=== PATIENT | male | born 1970 | race Caucasian/White ===

== ENCOUNTER → 2016-12-29 | Outpatient (CLI) | payer OTHER | LOC: OD 11:14 | PROVIDERS: ATTEND Urology | DX: E29.1 Testicular hypofunction (principal) | CPT/HCPCS: 36415; 84403 ==

== ENCOUNTER → 2017-01-09 | Outpatient (CLI) | payer OTHER ==
[2017-01-11 07:26] LABS: TESTOSTERONE FREE (DIRECT) 6.6 pg/mL (6.8-21.5)
== END ==
LOC: OD 08:50
PROVIDERS: ATTEND Urology
DX: E29.1 Testicular hypofunction (principal)
CPT/HCPCS: 36415; 84402; 84403

== ENCOUNTER 2017-11-29 21:12 | Emergency (ER) | payer OTHER ==
[2017-11-29] MEDS ORDERED: ASPIRIN 81 MG TABLET, CHEWABLE PO ONE (21:48)
--- NOTE | 2017-11-29 22:34 | ER Document Report ---
ED Medical Screen (RME) - General Chief Complaint: Chest Pain Stated Complaint: CHEST PAIN Time Seen by Provider: 11/29/17 22:31 Mode of Arrival: Ambulatory Information source: Patient Notes: 47-year-old male presents to ED for complaint of pain to the center of his chest to his jaw down both arms. He states his pain started a few weeks ago he was able, go he has had several episodes. States today that he had very sharp cramping feeling in the center of his chest both hands were numb and he felt dizzy. He states the hands are numb all the time when he drives and puts his hand above his heart. He states today he was more concerned because of the pain to the center of the chest and the pain in the jaw and the numbness to the arms. Patient is alert and oriented speaking in full sentences respirations regular unlabored and he does have clear lungs to auscultation. I have greeted and performed a rapid initial assessment of this patient. A comprehensive ED assessment and evaluation of the patient, analysis of test results and completion of medical decision making process will be conducted by an additional ED providers. TRAVEL OUTSIDE OF THE [place] IN LAST 30 DAYS: No Physical Exam - Vital signs Vitals: Temp Pulse Resp BP Pulse Ox 97.9 F 58 L 12 103/65 95 11/29/17 21:28 11/29/17 21:28 11/29/17 21:28 11/29/17 21:28 11/29/17 21:28 Course - Vital Signs Vital signs: Temp Pulse Resp BP Pulse Ox 97.9 F 58 L 12 103/65 95 11/29/17 21:28 11/29/17 21:28 11/29/17 21:28 11/29/17 21:28 11/29/17 21:28 Doctor's Discharge - Discharge Referrals: CANDICE HILLIARD MD [Primary Care Provider] - Follow up as needed
--- NOTE | 2017-11-29 22:38 | RADIOLOGY REPORT (SQ) ---
EXAM DESCRIPTION: Single view of the chest CLINICAL HISTORY: cp COMPARISON: None. FINDINGS: Single frontal view of the chest. The cardiomediastinal silhouette has normal size and contour. No consolidation, pneumothorax, or pleural effusion. No displaced rib fractures identified. Upper abdominal soft tissues are unremarkable. IMPRESSION: 1. No acute pulmonary process identified.
[2017-11-29 22:53] LABS: ABSOLUTE BASOPHILS # (AUTO) 0.1 10^3/uL (0.0-0.2); ABSOLUTE EOSINOPHILS # (AUTO) 0.3 10^3/uL (0.0-0.6); ABSOLUTE MONOCYTES (AUTO) 0.9 10^3/uL (0.1-1.4); ABSOLUTE NEUT (AUTO) 4.7 10^3/uL (1.7-8.2); BASOPHILS % (AUTO) 0.7 % (0-2); EOSINOPHILS % (AUTO) 3.4 % (0-6); HEMATOCRIT 39.4 % (37.9-51.0); HEMOGLOBIN 13.7 g/dL (13.5-17.0); LYMPHOCYTES % (AUTO) 33.7 % (13-45); MEAN CORPUSCULAR HEMOGLOBIN 31.8 pg (27.0-33.4); MEAN CORPUSCULAR HGB CONC 34.8 g/dL (32.0-36.0); MEAN CORPUSCULAR VOLUME 91 fl (80-97); MONOCYTES % (AUTO) 9.7 % (3-13); PLATELET COUNT 261 10^3/uL (150-450); RED BLOOD COUNT 4.31 10^6/uL (4.35-5.55); RED CELL DISTRIBUTION WIDTH 13.9 % (11.5-14.0); SEGMENTED NEUTROPHILS % (AUTO) 52.5 % (42-78); TOTAL CELLS COUNTED % (AUTO) 100 %; WHITE BLOOD COUNT 8.9 10^3/uL (4.0-10.5)
[2017-11-29 23:05] LABS: ALANINE AMINOTRANSFERASE 32 U/L (21-72); ALBUMIN 4.2 g/dL (3.5-5.0); ALKALINE PHOSPHATASE 43 U/L (38-126); ANION GAP 10 (5-19); ASPARTATE AMINO TRANSFERASE 24 U/L (17-59); BILIRUBIN,DIRECT 0.2 mg/dL (0.0-0.4); BILIRUBIN,TOTAL 0.3 mg/dL (0.2-1.3); BLOOD UREA NITROGEN 21 mg/dL (7-20); CALCIUM 9.6 mg/dL (8.4-10.2); CARBON DIOXIDE 25 mmol/L (22-30); CHLORIDE 106 mmol/L (98-107); CREATINE KINASE 265 U/L (55-170); GLUCOSE 83 mg/dL (75-110); POTASSIUM 4.2 mmol/L (3.6-5.0); TOTAL PROTEIN 6.3 g/dL (6.3-8.2)
[2017-11-29] MEDS ORDERED: ASPIRIN 81 MG TABLET, CHEWABLE ONE (23:09)
[2017-11-29 23:17] LABS: CREATINE KINASE MB 2.17 ng/mL (<4.55)
[2017-11-29 23:19] LABS: TROPONIN I < 0.012 ng/mL
--- NOTE | 2017-11-30 00:23 | ER Document Report ---
ED General - General Chief Complaint: Chest Pain Stated Complaint: CHEST PAIN Time Seen by Provider: 11/29/17 22:31 Mode of Arrival: Ambulatory Information source: Patient Notes: 47-year-old male with no reported past medical history presents today with complaint of chest pain. Patient states that 3 hours prior to arrival while at religious he experienced a sub-sternal chest pressure and pain that radiated to the left side of his face and left arm. Patient had associated lightheadedness. Patient states this pain lasted approximately 10 minutes. Patient describes 2 other episodes within the last week of similar chest pain with minimal exertion. Patient takes Lamictal for mood stabilization. He has a [id number] smoking history. He denies family history of early cardiac . TRAVEL OUTSIDE OF THE [place] IN LAST 30 DAYS: No - HPI Onset: Just prior to arrival Onset/Duration: Sudden, Gone Quality of pain: Pressure Severity: Mild Associated symptoms: Chest pain, Shortness of breath, Other - Lightheadedness Exacerbated by: Denies Relieved by: Denies Similar symptoms previously: Yes Recently seen / treated by doctor: No Past Medical History - General Information source: Patient - Social History Smoking Status: Current Every Day Smoker Chew tobacco use (# tins/day): No Frequency of alcohol use: None Drug Abuse: None Lives with: Family Family History: Reviewed & Not Pertinent Patient has suicidal ideation: No Patient has homicidal ideation: No - Medical History Medical History: Negative Renal/ Medical History: Denies: Hx Peritoneal Dialysis Review of Systems - Review of Systems Notes: REVIEW OF SYSTEMS: CONSTITUTIONAL : Denies fever, chills, or sweats. Denies recent illness. Denies weight loss, recent hospitalizations. EENT: Denies visula changes, eye pain. Denies nasal or sinus congestion or discharge. Denies sore throat, oral lesions, difficulty swallowing. CARDIOVASCULAR: Denies lower extremity edema. RESPIRATORY: Denies cough, cold, or chest congestion. Denies shortness of breath, difficulty breathing, or wheezing. GASTROINTESTINAL: Denies abdominal pain or distention. Denies nausea, vomiting , or diarrhea. Denies blood in vomitus, stools, or per rectum. Denies black, tarry stools. Denies constipation. GENITOURINARY: Denies difficulty urinating, painful urination, burning, frequency, blood in urine, or vaginal discharge. MUSCULOSKELETAL: Denies back or neck pain or stiffness. Denies joint pain or swelling. SKIN: Denies rash, lesions or sores. HEMATOLOGIC : Denies easy bruising or bleeding. LYMPHATIC: Denies swollen, enlarged glands. NEUROLOGICAL: Denies confusion or altered mental status. Denies passing out or loss of consciousness. Denies headache. Denies weakness or paralysis or loss of use of either side. Denies problems with gait or speech. Denies sensory loss, numbness, or tingling. Denies seizures. PSYCHIATRIC: Denies anxiety or stress. Denies depression, suicidal ideation, or homicidal ideation. Physical Exam - Vital signs Vitals: Temp Pulse Resp BP Pulse Ox 97.9 F 58 L 12 103/65 95 11/29/17 21:28 11/29/17 21:28 11/29/17 21:28 11/29/17 21:28 11/29/17 21:28 Interpretation: Normal, Bradycardic - Notes Notes: PHYSICAL EXAMINATION: GENERAL: Well-appearing, well-nourished and in no acute distress. HEAD: Atraumatic, normocephalic. EYES: Pupils equal round and reactive to light, extraocular movements intact, sclera anicteric, conjunctiva are normal. ENT: Nares patent, oropharynx clear without exudates. Moist mucous membranes. NECK: Normal range of motion, supple without lymphadenopathy LUNGS: Breath sounds clear to auscultation bilaterally and equal. No wheezes rales or rhonchi. HEART: Regular rate and rhythm without murmurs ABDOMEN: Soft, nontender, nondistended abdomen. No guarding, no rebound. No masses appreciated. Musculoskeletal: Normal range of motion, no pitting or edema. No cyanosis. NEUROLOGICAL: Cranial nerves grossly intact. Normal speech, normal gait. Normal sensory, motor exams PSYCH: Normal mood, normal affect. SKIN: Warm, Dry, normal turgor, no rashes or lesions noted. Course - Re-evaluation Re-evalutation: Laboratory 11/29/17 11/29/17 11/29/17 22:40 22:40 22:40 WBC 8.9 RBC 4.31 L Hgb 13.7 Hct 39.4 MCV 91 MCH 31.8 MCHC 34.8 RDW 13.9 Plt Count 261 Seg Neutrophils % 52.5 Lymphocytes % 33.7 Monocytes % 9.7 Eosinophils % 3.4 Basophils % 0.7 Absolute Neutrophils 4.7 Absolute Lymphocytes 3.0 Absolute Monocytes 0.9 Absolute Eosinophils 0.3 Absolute Basophils 0.1 Sodium 141.0 Potassium 4.2 Chloride 106 Carbon Dioxide 25 Anion Gap 10 BUN 21 H Creatinine 1.02 Est GFR ( Amer) > 60 Est GFR (Non-Af Amer) > 60 Glucose 83 Calcium 9.6 Total Bilirubin 0.3 Direct Bilirubin 0.2 Neonat Total Bilirubin Not Reportable Neonat Direct Bilirubin Not Reportable Neonat Indirect Bili Not Reportable AST 24 ALT 32 Alkaline Phosphatase 43 Creatine Kinase 265 H CK-MB (CK-2) 2.17 Troponin I < 0.012 Total Protein 6.3 Albumin 4.2 Chest X-Ray 11/29/17 21:48 IMPRESSION: 2010 [employer]- All Rights Reserved 11/30/17 00:22 47-year-old male with no reported past medical history presents today with complaint of chest pain. Patient states that 3 hours prior to arrival while at religious he experienced a substernal chest pressure and pain that radiated to the left side of his face and left arm. Patient had associated lightheadedness. Patient states this pain lasted approximately 10 minutes. Patient describes 2 other episodes within the last week of similar chest pain with minimal exertion. Patient was seen by myself upon arrival. Vital signs were reviewed. Patient is afebrile, normotensive and not hypoxic. Patient does not appear toxic or dehydrated. They are in no acute distress. Previous medical records and nursing notes reviewed. 11/30/17 01:08 Heart score 3 Spoke to the patient regarding my recommendation for admission to rule out ACS. Patient is declining admission at this time. We did discuss the risks of discharge without further testing which included heart attack and . he states that he will follow-up with his primary care physician Dr. Sloan for further testing. He has remained chest pain-free throughout his ED course. Patient provided the opportunity to ask questions, and express concerns. Discharge instructions discussed. Patient is agreeable with discharge home. Return indications explained and discussed with the patient who displays understanding. Patient encouraged to return to the emergency department immediately with any concerns. 11/30/17 04:44 - Vital Signs Vital signs: Temp Pulse Resp BP Pulse Ox 97.7 F 53 L 16 106/59 L 95 11/30/17 01:25 11/30/17 01:25 11/30/17 01:25 11/30/17 01:25 11/30/17 01:25 - Laboratory Result Diagrams: 11/29/17 22:40 11/29/17 22:40 Laboratory results interpreted by me: 11/29/17 11/29/17 22:40 22:40 RBC 4.31 L BUN 21 H Creatine Kinase 265 H - Diagnostic Test Radiology reviewed: Image reviewed - EKG Interpretation by Me EKG shows normal: Sinus rhythm Rate: Bradycardia Rhythm: NSR [place]/QRS: RBBB Discharge - Discharge Clinical Impression: Left against medical advice Chest pain Qualifiers: Chest pain type: unspecified Qualified Code(s): R07.9 - Chest pain, unspecified Condition: Good Disposition: HOME, SELF-CARE Instructions: Aspirin (Cardiac) ([facility]), Chest Pain of Unclear Cause ([facility]) Additional Instructions: After performing a Medical Screening Examination, I spoke with the patient at length in regards to leaving the hospital against medical advice. I do not believe the patient should leave but the patient is alert oriented x4, understands the risks and benefits of staying and leaving including disability and . Pt understands that he can return at any time for further care and is more than welcome to do so. Pt verbalizes this understanding. Forms: Smoking Cessation Education Referrals: CANDICE HILLIARD MD [NO LOCAL MD] - Follow up tomorrow
[2017-11-30 01:29] VITALS: BP 106/59
--- NOTE | 2017-11-30 08:44 | EKG REPORT ---
SEVERITY:- ABNORMAL ECG - SINUS RHYTHM INCOMPLETE RIGHT BUNDLE BRANCH BLOCK : Confirmed by: Cosme Farr 30-Nov-2017 08:43:51
== END 2017-11-30 01:33 | disposition home or self-care (01) ==
LOC: ER 21:12
DX: R07.89 Other chest pain (principal); I45.10 Unspecified right bundle-branch block; R00.1 Bradycardia, unspecified; R42 Dizziness and giddiness; R06.02 Shortness of breath; F17.200 Nicotine dependence, unspecified, uncomplicated; Z79.899 Other long term (current) drug therapy; Z53.20 Procedure and treatment not carried out because of patient's decision for unspecified reasons
CPT/HCPCS: 36415; 71045; 80053; 82550; 82553; 84484; 85025; 93005; 93010; 99285

== ENCOUNTER → 2018-05-22 | Outpatient (CLI) | payer OTHER ==
[2018-05-22 16:11] LABS: ABSOLUTE LYMPHOCYTES (AUTO) 0.7 10^3/uL (0.5-4.7); ABSOLUTE MONOCYTES (AUTO) 0.8 10^3/uL (0.1-1.4); ABSOLUTE NEUT (AUTO) 3.6 10^3/uL (1.7-8.2); BASOPHILS % (AUTO) 0.4 % (0-2); EOSINOPHILS % (AUTO) 0.4 % (0-6); HEMATOCRIT 41.2 % (37.9-51.0); HEMOGLOBIN 14.4 g/dL (13.5-17.0); LYMPHOCYTES % (AUTO) 14.3 % (13-45); MEAN CORPUSCULAR HEMOGLOBIN 30.6 pg (27.0-33.4); MEAN CORPUSCULAR HGB CONC 34.9 g/dL (32.0-36.0); MEAN CORPUSCULAR VOLUME 88 fl (80-97); MONOCYTES % (AUTO) 15.6 % (3-13); PLATELET COUNT 203 10^3/uL (150-450); RED CELL DISTRIBUTION WIDTH 13.2 % (11.5-14.0); SEGMENTED NEUTROPHILS % (AUTO) 69.3 % (42-78); TOTAL CELLS COUNTED % (AUTO) 100 %; WHITE BLOOD COUNT 5.2 10^3/uL (4.0-10.5)
[2018-05-22 16:36] LABS: ALANINE AMINOTRANSFERASE 34 U/L (21-72); ALBUMIN 3.8 g/dL (3.5-5.0); ALKALINE PHOSPHATASE 52 U/L (38-126); ANION GAP 11 (5-19); ASPARTATE AMINO TRANSFERASE 30 U/L (17-59); BILIRUBIN,DIRECT 0.3 mg/dL (0.0-0.4); BILIRUBIN,TOTAL 0.6 mg/dL (0.2-1.3); BLOOD UREA NITROGEN 10 mg/dL (7-20); CALCIUM 9.6 mg/dL (8.4-10.2); CARBON DIOXIDE 31 mmol/L (22-30); CHLORIDE 98 mmol/L (98-107); GLUCOSE 108 mg/dL (75-110); POTASSIUM 3.6 mmol/L (3.6-5.0); SODIUM 139.6 mmol/L (137-145); TOTAL PROTEIN 6.3 g/dL (6.3-8.2)
== END ==
LOC: LAB 15:41
PROVIDERS: ATTEND Nurse Practitioner Family
DX: R50.9 Fever, unspecified (principal)
CPT/HCPCS: 36415; 80053; 85025

== ENCOUNTER 2018-05-23 09:23 | Emergency (ER) | payer OTHER ==
[2018-05-23] MEDS ORDERED: RINGERS SOLUTION,LACTATED 1,000 ML IV ONE (09:39)
[2018-05-23] MEDS ORDERED: NORMAL SALINE 1000 ML 1,000 ML IV PRN (09:39)
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
[2018-05-23 10:07] VITALS: BP 112/90
[2018-05-23 10:14] LABS: HEMATOCRIT 42.2 % (37.9-51.0); HEMOGLOBIN 14.6 g/dL (13.5-17.0); MEAN CORPUSCULAR HEMOGLOBIN 30.5 pg (27.0-33.4); MEAN CORPUSCULAR HGB CONC 34.5 g/dL (32.0-36.0); MEAN CORPUSCULAR VOLUME 88 fl (80-97); PLATELET COUNT 223 10^3/uL (150-450); RED BLOOD COUNT 4.78 10^6/uL (4.35-5.55); RED CELL DISTRIBUTION WIDTH 13.1 % (11.5-14.0); WHITE BLOOD COUNT 5.1 10^3/uL (4.0-10.5)
[2018-05-23 10:15] LABS: APPEARANCE,URINE SLIGHTLY-CLOUDY; BILIRUBIN,URINE NEGATIVE (NEGATIVE); COLOR,URINE YELLOW; GLUCOSE, URINE NEGATIVE (NEGATIVE); KETONES,URINE NEGATIVE (NEGATIVE); LEUKOCYTE ESTERASE,URINE NEGATIVE (NEGATIVE); NITRITE,URINE NEGATIVE (NEGATIVE); PROTEIN,URINE 30 mg/dL (NEGATIVE); URINE SPECIFIC GRAVITY 1.018; UROBILINOGEN,URINE NEGATIVE mg/dL (<2.0)
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
[2018-05-23] MEDS ORDERED: PROCHLORPERAZINE EDISYLATE INJ 10 MG/2 ML VIAL IV ONE (10:23)
[2018-05-23] MEDS ORDERED: DIPHENHYDRAMINE HCL 50 MG/ML VIAL IV ONE (10:23)
[2018-05-23] MEDS ORDERED: KETOROLAC TROMETHAMINE INJ/PF 30 MG/1 ML SDV IV ONE (10:24)
[2018-05-23 10:27] LABS: A TYPE INFLUENZA AG NEGATIVE (NEGATIVE); B INFLUENZA AG NEGATIVE (NEGATIVE)
[2018-05-23 10:28] LABS: ALANINE AMINOTRANSFERASE 36 U/L (21-72); ALBUMIN 3.9 g/dL (3.5-5.0); ALKALINE PHOSPHATASE 42 U/L (38-126); ANION GAP 13 (5-19); ASPARTATE AMINO TRANSFERASE 37 U/L (17-59); BILIRUBIN,DIRECT 0.2 mg/dL (0.0-0.4); BILIRUBIN,TOTAL 0.4 mg/dL (0.2-1.3); BLOOD UREA NITROGEN 10 mg/dL (7-20); CALCIUM 9.8 mg/dL (8.4-10.2); CARBON DIOXIDE 30 mmol/L (22-30); CHLORIDE 102 mmol/L (98-107); GLUCOSE 115 mg/dL (75-110); SODIUM 144.5 mmol/L (137-145); TOTAL PROTEIN 6.4 g/dL (6.3-8.2)
[2018-05-23 10:35] LABS: ABSOLUTE LYMPHOCYTES# (MANUAL) 1.6 10^3/uL (0.5-4.7); ABSOLUTE MONOCYTES # (MANUAL) 0.7 10^3/uL (0.1-1.4); ABSOLUTE NEUTROPHILS# (MANUAL) 2.7 10^3/uL (1.7-8.2); BAND NEUTROPHILS % (MANUAL) 1 % (3-5); BASOPHILS % (MANUAL) 0 % (0-2); EOSINOPHILS % (MANUAL) 1 % (0-6); LYMPHOCYTES % (MANUAL) 27 % (13-45); MONOCYTES % (MANUAL) 14 % (3-13); SEGMENTED NEUTROPHILS % (MAN) 52 % (42-78); TOTAL CELLS COUNTED 100
[2018-05-23 10:36] LABS: OVALOCYTES SLIGHT; PLATELET COMMENT ADEQUATE; POIKILOCYTOSIS SLIGHT
[2018-05-23] MEDS ORDERED: DEXTROSE 5%-NORMAL SALINE 1,000 ML IV ONE (11:07)
[2018-05-23] MEDS ORDERED: ONDANSETRON ODT 4 MG TAB (6 TAB/ER DISP) PO PRN (12:03)
== END 2018-05-23 12:36 | disposition home or self-care (01) ==
LOC: ER 09:23
DX: B34.9 Viral infection, unspecified (principal); E86.0 Dehydration; R19.7 Diarrhea, unspecified; R11.10 Vomiting, unspecified; R51 Headache; R50.9 Fever, unspecified; Z90.5 Acquired absence of kidney; F11.20 Opioid dependence, uncomplicated; Z79.899 Other long term (current) drug therapy; Z88.8 Allergy status to other drugs, medicaments and biological substances
CPT/HCPCS: 99284; 96361; 96374; 96375; 36415; 87040; 85025; 87077; 80053; 81001; 87186; 83605; 87804; J1200; J1885; J0780; J7120

== ENCOUNTER 2018-05-24 02:40 | Inpatient (IN) | payer OTHER ==
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
[2018-05-24 03:17] LABS: VENOUS BLOOD PCO2 41.7 mmHg (35-63); VENOUS BLOOD PH 7.4 (7.30-7.42)
[2018-05-24 03:21] LABS: HEMATOCRIT 36.8 % (37.9-51.0); HEMOGLOBIN 12.7 g/dL (13.5-17.0); MEAN CORPUSCULAR HEMOGLOBIN 30.3 pg (27.0-33.4); MEAN CORPUSCULAR HGB CONC 34.4 g/dL (32.0-36.0); MEAN CORPUSCULAR VOLUME 88 fl (80-97); PLATELET COUNT 225 10^3/uL (150-450); RED BLOOD COUNT 4.18 10^6/uL (4.35-5.55); RED CELL DISTRIBUTION WIDTH 13.3 % (11.5-14.0); WHITE BLOOD COUNT 5.1 10^3/uL (4.0-10.5)
--- NOTE | 2018-05-24 03:34 | RADIOLOGY REPORT (SQ) ---
EXAM DESCRIPTION: XR CHEST 1 VIEW COMPLETED DATE/TME: 05/24/2018 03:01 CLINICAL HISTORY: 47 years Male, positive blood cultures, fever COMPARISON:11/29/2017 NUMBER OF VIEWS/TECHNIQUE: 1/AP FINDINGS: Adequate lung volume, clear parenchyma, normal cardiac silhouette, and intact bony thorax. IMPRESSION: No acute cardiopulmonary findings.
[2018-05-24 03:39] LABS: ALANINE AMINOTRANSFERASE 38 U/L (21-72); ALBUMIN 3.4 g/dL (3.5-5.0); ALKALINE PHOSPHATASE 45 U/L (38-126); ANION GAP 10 (5-19); ASPARTATE AMINO TRANSFERASE 57 U/L (17-59); BILIRUBIN,DIRECT 0.1 mg/dL (0.0-0.4); BILIRUBIN,TOTAL 0.3 mg/dL (0.2-1.3); BLOOD UREA NITROGEN 9 mg/dL (7-20); CALCIUM 8.8 mg/dL (8.4-10.2); CARBON DIOXIDE 29 mmol/L (22-30); CHLORIDE 104 mmol/L (98-107); GLUCOSE 103 mg/dL (75-110); POTASSIUM 3.7 mmol/L (3.6-5.0); SODIUM 143.4 mmol/L (137-145)
[2018-05-24 03:49] LABS: ABSOLUTE LYMPHOCYTES# (MANUAL) 1.5 10^3/uL (0.5-4.7); ABSOLUTE MONOCYTES # (MANUAL) 0.9 10^3/uL (0.1-1.4); ABSOLUTE NEUTROPHILS# (MANUAL) 2.5 10^3/uL (1.7-8.2); BASOPHILS % (MANUAL) 0 % (0-2); EOSINOPHILS % (MANUAL) 3 % (0-6); LYMPHOCYTES % (MANUAL) 28 % (13-45); MONOCYTES % (MANUAL) 18 % (3-13); PLATELET COMMENT ADEQUATE; SCHISTOCYTES SLIGHT; SEGMENTED NEUTROPHILS % (MAN) 49 % (42-78); TOTAL CELLS COUNTED 100; TOXIC GRANULATION SLIGHT
[2018-05-24] MEDS ORDERED: CEFTRIAXONE 2 GM/D5W RTU 2 GM/50 ML RTUPB IV ONE (03:56)
[2018-05-24 04:01] LABS: APPEARANCE,URINE CLEAR; BILIRUBIN,URINE NEGATIVE (NEGATIVE); COLOR,URINE STRAW; GLUCOSE, URINE NEGATIVE (NEGATIVE); KETONES,URINE NEGATIVE (NEGATIVE); LEUKOCYTE ESTERASE,URINE NEGATIVE (NEGATIVE); NITRITE,URINE NEGATIVE (NEGATIVE); PROTEIN,URINE NEGATIVE (NEGATIVE); URINE SPECIFIC GRAVITY 1.008; UROBILINOGEN,URINE NEGATIVE mg/dL (<2.0)
[2018-05-24] MEDS ORDERED: NORMAL SALINE 1000 ML 1,000 ML IV ONE (04:04)
[2018-05-24] MEDS ORDERED: KETOROLAC TROMETHAMINE INJ/PF 30 MG/1 ML SDV IV ONE (04:05)
[2018-05-24] MEDS ORDERED: CEFTRIAXONE INJ 1000 MG VIAL ONE (04:07)
[2018-05-24] MEDS ORDERED: IPRATROPIUM/ALBUTEROL 0.5-2.5 MG/3 ML AMPUL NEB PRN (04:31)
[2018-05-24] MEDS ORDERED: KETOROLAC TROMETHAMINE INJ/PF 30 MG/1 ML SDV IV PRN (04:35)
[2018-05-24 05:01] LABS: URINE AMPHETAMINES SCREEN NEGATIVE; URINE BARBITURATES SCREEN NEGATIVE; URINE BENZODIAZEPINES SCREEN NEGATIVE; URINE COCAINE SCREEN NEGATIVE; URINE MARIJUANA (THC) SCREEN NEGATIVE; URINE METHADONE SCREEN NEGATIVE; URINE PHENCYCLIDINE SCREEN NEGATIVE
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
[2018-05-24] MEDS: NORMAL SALINE 1000 ML 1,000 ML IV PRN ×2 (05:50→21:11)
[2018-05-24 06:19] LABS: HEMATOCRIT 32.8 % (37.9-51.0); HEMOGLOBIN 11.6 g/dL (13.5-17.0); MEAN CORPUSCULAR HEMOGLOBIN 30.8 pg (27.0-33.4); MEAN CORPUSCULAR HGB CONC 35.3 g/dL (32.0-36.0); MEAN CORPUSCULAR VOLUME 87 fl (80-97); PLATELET COUNT 202 10^3/uL (150-450); RED BLOOD COUNT 3.76 10^6/uL (4.35-5.55); RED CELL DISTRIBUTION WIDTH 13.5 % (11.5-14.0); WHITE BLOOD COUNT 4.4 10^3/uL (4.0-10.5)
[2018-05-24 06:41] LABS: ABSOLUTE LYMPHOCYTES# (MANUAL) 1.5 10^3/uL (0.5-4.7); ABSOLUTE MONOCYTES # (MANUAL) 0.5 10^3/uL (0.1-1.4); ABSOLUTE NEUTROPHILS# (MANUAL) 2.1 10^3/uL (1.7-8.2); BAND NEUTROPHILS % (MANUAL) 1 % (3-5); BASOPHILS % (MANUAL) 0 % (0-2); EOSINOPHILS % (MANUAL) 6 % (0-6); LYMPHOCYTES % (MANUAL) 35 % (13-45); MONOCYTES % (MANUAL) 12 % (3-13); NUCLEATED RED BLOOD CELLS 1 /100 WBC (0); SEGMENTED NEUTROPHILS % (MAN) 46 % (42-78); TOTAL CELLS COUNTED 100
[2018-05-24 06:42] LABS: ANISOCYTOSIS SLIGHT; OVALOCYTES 1+; PLATELET COMMENT ADEQUATE; PLATELET LARGE PRESENT; SCHISTOCYTES 1+
[2018-05-24] MEDS: ACETAMINOPHEN 325 MG TABLET PO PRN ×2 (09:01→17:48)
[2018-05-24] MEDS: HEPARIN SOD (PORCINE) 5,000 UNIT/ML 1 ML SYRINGE SUBCUT SCH ×3 (09:06→21:10)
[2018-05-24] MEDS: DOCUSATE SODIUM 100 MG CAPSULE PO SCH ×2 (10:30→17:47)
[2018-05-24] MEDS: PIPERACILLIN SODIUM/TAZOBACTAM 3.375 GM in NORMAL SALINE 100 ML IV SCH ×3 (14:19→23:03)
[2018-05-24] MEDS: KETOROLAC TROMETHAMINE INJ/PF 30 MG/1 ML SDV IV PRN ×2 (18:53→23:07)
[2018-05-24] MEDS ORDERED: CEFTRIAXONE 1 GM/D5W RTU 1 GM/50 ML RTUPB IV SCH (22:00)
[2018-05-25] MEDS: KETOROLAC TROMETHAMINE INJ/PF 30 MG/1 ML SDV IV PRN ×5 (02:56→20:23)
[2018-05-25 04:57] LABS: ABSOLUTE EOSINOPHILS # (AUTO) 0.1 10^3/uL (0.0-0.6); ABSOLUTE LYMPHOCYTES (AUTO) 1.1 10^3/uL (0.5-4.7); ABSOLUTE MONOCYTES (AUTO) 0.6 10^3/uL (0.1-1.4); ABSOLUTE NEUT (AUTO) 2.1 10^3/uL (1.7-8.2); BASOPHILS % (AUTO) 0.5 % (0-2); EOSINOPHILS % (AUTO) 3.7 % (0-6); HEMATOCRIT 33.5 % (37.9-51.0); HEMOGLOBIN 11.7 g/dL (13.5-17.0); LYMPHOCYTES % (AUTO) 28.3 % (13-45); MEAN CORPUSCULAR HEMOGLOBIN 30.7 pg (27.0-33.4); MEAN CORPUSCULAR HGB CONC 34.9 g/dL (32.0-36.0); MEAN CORPUSCULAR VOLUME 88 fl (80-97); MONOCYTES % (AUTO) 15.9 % (3-13); PLATELET COUNT 199 10^3/uL (150-450); RED BLOOD COUNT 3.81 10^6/uL (4.35-5.55); RED CELL DISTRIBUTION WIDTH 13.3 % (11.5-14.0); SEGMENTED NEUTROPHILS % (AUTO) 51.6 % (42-78); TOTAL CELLS COUNTED % (AUTO) 100 %
[2018-05-25] MEDS: HEPARIN SOD (PORCINE) 5,000 UNIT/ML 1 ML SYRINGE SUBCUT SCH ×3 (06:08→21:17)
[2018-05-25] MEDS: PIPERACILLIN SODIUM/TAZOBACTAM 3.375 GM in NORMAL SALINE 100 ML IV SCH ×4 (06:08→23:17)
[2018-05-25] MEDS: BUPRENORPHINE HCL 2 MG SUBLINGUAL TABLET SL SCH ×2 (09:35→17:03)
--- NOTE | 2018-05-25 12:47 | RADIOLOGY REPORT (SQ) ---
EXAM DESCRIPTION: CT HEAD WITHOUT COMPLETED DATE/TIME: 05/25/2018 12:08 pm REASON FOR STUDY: severe headache,photophobia,neck stiffness COMPARISON: None. TECHNIQUE: Axial images acquired through the brain without intravenous contrast. Images reviewed wi th bone, brain and subdural windows. Additional sagittal and coronal reconstructions were generated. Images stored on PACS. All CT scanners at this facility use dose modulation, iterative reconstruction, and/or weight based d osing when appropriate to reduce radiation dose to as low as reasonably achievable (ALARA). [facility]: Dose Right [facility]: CareDose [facility]: Dose Right [facility]: Teradose 4D [facility]: [employer] RADIATION DOSE: CT Rad equipment meets quality standard of care and radiation dose reduction techniq ues were employed. CTDIvol: 48.8 mGy. DLP: 1052 mGy-cm. mGy. LIMITATIONS: None. FINDINGS: VENTRICLES: Normal size and contour. CEREBRUM: No masses. No hemorrhage. No midline shift. No evidence for acute infarction. Normal gra y/white matter differentiation. No areas of low density in the white matter. CEREBELLUM: No masses. No hemorrhage. No alteration of density. No evidence for acute infarction. EXTRAAXIAL SPACES: No fluid collections. No masses. ORBITS AND GLOBE: No intra- or extraconal masses. Normal contour of globe without masses. CALVARIUM: No fracture. PARANASAL SINUSES: No fluid or mucosal thickening. SOFT TISSUES: No mass or hematoma. OTHER: No other significant finding. IMPRESSION: NORMAL BRAIN CT WITHOUT CONTRAST. EVIDENCE OF ACUTE STROKE: NO. COMMENT: Quality ID # [id number]: Final reports with documentation of one or more dose reduction techniques (e.g., Automated exposure control, adjustment of the mA and/or kV according to patient size, use of iterative reconstruction technique) TECHNICAL DOCUMENTATION: JOB ID: [id number] [employer]- All Rights Reserved Reading location - IP/workstation name: [email or web address]
[2018-05-25 15:20] LABS: INTERNATIONAL RATION (INR) 0.92; PROTHROMBIN TIME 12.8 SEC (11.4-15.4)
[2018-05-25 15:21] LABS: PARTIAL THROMBOPLASTIN TIME 37.7 SEC (23.5-35.8)
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
[2018-05-25] MEDS: ZOLPIDEM TARTRATE 5 MG TABLET PO SCH (21:02)
[2018-05-26] MEDS: KETOROLAC TROMETHAMINE INJ/PF 30 MG/1 ML SDV IV PRN ×5 (01:54→20:40)
[2018-05-26] MEDS: HEPARIN SOD (PORCINE) 5,000 UNIT/ML 1 ML SYRINGE SUBCUT SCH ×3 (05:26→21:44)
[2018-05-26] MEDS: PIPERACILLIN SODIUM/TAZOBACTAM 3.375 GM in NORMAL SALINE 100 ML IV SCH (06:11)
[2018-05-26] MEDS: ACETAMINOPHEN 325 MG TABLET PO PRN ×2 (07:35→14:09)
[2018-05-26] MEDS: BUPRENORPHINE HCL 2 MG SUBLINGUAL TABLET SL SCH ×2 (08:31→16:06)
[2018-05-26 09:40] LABS: INTERNATIONAL RATION (INR) 0.97; PARTIAL THROMBOPLASTIN TIME 38.9 SEC (23.5-35.8); PROTHROMBIN TIME 13.4 SEC (11.4-15.4)
[2018-05-26 09:44] LABS: ANION GAP 7 (5-19); BLOOD UREA NITROGEN 8 mg/dL (7-20); CARBON DIOXIDE 29 mmol/L (22-30); CHLORIDE 105 mmol/L (98-107); GLUCOSE 105 mg/dL (75-110); POTASSIUM 3.8 mmol/L (3.6-5.0); SODIUM 141.1 mmol/L (137-145)
[2018-05-26 09:57] LABS: HEMATOCRIT 33.9 % (37.9-51.0); HEMOGLOBIN 11.8 g/dL (13.5-17.0); MEAN CORPUSCULAR HEMOGLOBIN 30.5 pg (27.0-33.4); MEAN CORPUSCULAR HGB CONC 34.9 g/dL (32.0-36.0); MEAN CORPUSCULAR VOLUME 88 fl (80-97); PLATELET COUNT 268 10^3/uL (150-450); RED BLOOD COUNT 3.88 10^6/uL (4.35-5.55); RED CELL DISTRIBUTION WIDTH 13.3 % (11.5-14.0); WHITE BLOOD COUNT 7.3 10^3/uL (4.0-10.5)
[2018-05-26 10:22] LABS: ABSOLUTE LYMPHOCYTES# (MANUAL) 1.3 10^3/uL (0.5-4.7); ABSOLUTE MONOCYTES # (MANUAL) 0.8 10^3/uL (0.1-1.4); BASOPHILS % (MANUAL) 0 % (0-2); EOSINOPHILS % (MANUAL) 3 % (0-6); LYMPHOCYTES % (MANUAL) 18 % (13-45); MONOCYTES % (MANUAL) 11 % (3-13); SEGMENTED NEUTROPHILS % (MAN) 68 % (42-78); TOTAL CELLS COUNTED 100
[2018-05-26 10:23] LABS: PLATELET CLUMPS PRESENT; PLATELET COMMENT ADEQUATE; PLATELET GIANT PRESENT
--- NOTE | 2018-05-26 12:37 | RADIOLOGY REPORT (SQ) ---
EXAM DESCRIPTION: LUMBAR PUNCTURE COMPLETED DATE/TIME: 05/26/2018 12:26 pm REASON FOR STUDY: bacteremia, headache, neck pain, photophobia COMPARISON: CT of the head 05/25/2018. FLUOROSCOPY TIME: 22 seconds 4 images saved to PACS. TECHNIQUE: Fluoroscopic guided lumbar puncture with opening and closing pressures. LIMITATIONS: None. PROCEDURE: After written consent and assessment were obtained, the patient was brought into the fluo roscopy room and placed prone on the table. The patient's lower back was prepped in a sterile fashio n and an entry site was selected under live fluoroscopic guidance. The entry site was anesthetized wi th 1% lidocaine. A 20 gauge needle was advanced through the skin and into the thecal sac at the level of L3-L4. An opening pressure of 26 water units was obtained. After approximately 7.3ml of CSF was drained, a closing pressure of 22 water units was obtained. The needle was removed and a sterile band age was placed of the site. Specimens were sent to the lab for testing. A fluoroscopic spot image was saved to PACS confirming level access. FINDINGS: Clear CSF IMPRESSION: Lumbar puncture under fluoroscopy. No immediate complication. COMMENT: Patient medication list reviewed:Yes- Quality ID# [id number]:Eligible professional attests to docu menting in the medical record they obtained, updated, or reviewed the patient's current medications.. Quality ID 145: Final reports for procedures using fluoroscopy that document radiation exposure anish ricky, or exposure time and number of fluorographic images (if radiation exposure indices are not avail able) TECHNICAL DOCUMENTATION: JOB ID: [id number] [employer]- All Rights Reserved Reading location - IP/workstation name: [email or web address]
[2018-05-26] MEDS: SENNOSIDES/DOCUSATE 8.6-50 MG 1 EACH TABLET PO SCH (14:09)
[2018-05-26] MEDS ORDERED: CLONAZEPAM 1 MG TABLET PO ONE (14:15)
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
[2018-05-26 16:23] LABS: GLUCOSE,CSF 59 mg/dL (40-70); PROTEIN,CSF 38 mg/dL (12-60)
[2018-05-26 16:57] LABS: APPEARANCE ALL TUBES CLEAR; COLOR ALL TUBES COLORLESS; CSF TUBE NUMBER 3; RED BLOOD CELL,CSF 7 /uL (0-10)
[2018-05-26 16:58] LABS: WHITE BLOOD CELL,CSF 2 /uL (0-5)
[2018-05-26] MEDS: ZOLPIDEM TARTRATE 5 MG TABLET PO SCH (21:43)
[2018-05-27] MEDS: KETOROLAC TROMETHAMINE INJ/PF 30 MG/1 ML SDV IV PRN ×4 (01:24→18:57)
[2018-05-27] MEDS: HEPARIN SOD (PORCINE) 5,000 UNIT/ML 1 ML SYRINGE SUBCUT SCH ×3 (05:22→21:18)
[2018-05-27] MEDS: ACETAMINOPHEN 325 MG TABLET PO PRN (08:58)
[2018-05-27] MEDS: SENNOSIDES/DOCUSATE 8.6-50 MG 1 EACH TABLET PO SCH (08:59)
[2018-05-27] MEDS: BUPRENORPHINE HCL 2 MG SUBLINGUAL TABLET SL SCH ×2 (08:59→16:15)
[2018-05-27] MEDS ORDERED: NA PHOS,M-B/NA PHOS,DI-BA (ADULT) 133 ML ENEMA PR ONE (09:30)
[2018-05-27] MEDS ORDERED: CEFTRIAXONE 1 GM/D5W RTU 1 GM/50 ML RTUPB IV SCH (10:00)
[2018-05-27] MEDS ORDERED: CEFTRIAXONE SODIUM 1,000 MG in DEXTROSE 5%-WATER 50 ML IV SCH (10:00)
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
[2018-05-27] MEDS: BUTALB/ACETAMINOPHEN/CAFFEINE 1 TAB EACH PO PRN (21:20)
[2018-05-27] MEDS: ZOLPIDEM TARTRATE 5 MG TABLET PO SCH (21:21)
[2018-05-28] MEDS: KETOROLAC TROMETHAMINE INJ/PF 30 MG/1 ML SDV IV PRN ×3 (04:37→18:29)
[2018-05-28] MEDS: HEPARIN SOD (PORCINE) 5,000 UNIT/ML 1 ML SYRINGE SUBCUT SCH ×3 (06:43→21:22)
[2018-05-28] MEDS ORDERED: CEFTRIAXONE SODIUM 2,000 MG in DEXTROSE 5%-WATER 100 ML IV SCH (10:00)
[2018-05-28] MEDS ORDERED: CEFTRIAXONE 2 GM/D5W RTU 2 GM/50 ML RTUPB IV SCH (10:00)
[2018-05-28] MEDS: SENNOSIDES/DOCUSATE 8.6-50 MG 1 EACH TABLET PO SCH (10:40)
[2018-05-28] MEDS: SULFAMETHOXAZOLE/TRIMETHOPRIM 800-160 MG TABLET PO SCH ×2 (10:40→17:18)
[2018-05-28] MEDS: BUPRENORPHINE HCL 2 MG SUBLINGUAL TABLET SL SCH ×2 (10:41→16:08)
[2018-05-28 11:48] LABS: ALANINE AMINOTRANSFERASE 126 U/L (21-72); ALBUMIN 3.1 g/dL (3.5-5.0); ALKALINE PHOSPHATASE 63 U/L (38-126); ANION GAP 9 (5-19); ASPARTATE AMINO TRANSFERASE 87 U/L (17-59); BILIRUBIN,DIRECT 0.1 mg/dL (0.0-0.4); BILIRUBIN,TOTAL 0.2 mg/dL (0.2-1.3); BLOOD UREA NITROGEN 11 mg/dL (7-20); CARBON DIOXIDE 31 mmol/L (22-30); CHLORIDE 103 mmol/L (98-107); GLUCOSE 83 mg/dL (75-110); POTASSIUM 4.9 mmol/L (3.6-5.0); SODIUM 142.5 mmol/L (137-145); TOTAL PROTEIN 5.4 g/dL (6.3-8.2)
[2018-05-28] MEDS: BUTALB/ACETAMINOPHEN/CAFFEINE 1 TAB EACH PO PRN (12:23)
--- NOTE | 2018-05-28 14:43 | RADIOLOGY REPORT (SQ) ---
EXAM DESCRIPTION: CTA CHEST COMPLETED DATE/TIME: 05/28/2018 2:26 pm REASON FOR STUDY: assess for aortitis per ID recommendation COMPARISON: None. TECHNIQUE: CT scan of the chest performed using helical scanning technique with dynamic intravenous contrast injection. Images reviewed with lung, soft tissue and bone windows. Reconstructed coronal and sagittal MPR images reviewed. Additional 3 dimensional post-processing performed to develop Maximal Intensity Projection images (MN P). All images stored on PACS. All CT scanners at this facility use dose modulation, iterative reconstruction, and/or weight based d osing when appropriate to reduce radiation dose to as low as reasonably achievable (ALARA). [facility]: Dose Right [facility]: CareDose [facility]: Dose Right [facility]: Teradose 4D [facility]: Tactics Cloud CONTRAST TYPE AND DOSE: contrast/concentration: Isovue 350.00 mg/ml; Total Contrast Delivered: 52.0 ml; Total Saline Delivered: 80.0 ml Contrast bolus optimized for the aorta. Not diagnostic for the pulmonary arteries. RENAL FUNCTION: GFR > 60. RADIATION DOSE: CT Rad equipment meets quality standard of care and radiation dose reduction techniq ues were employed. CTDIvol: 1.9 - 22.5 mGy. DLP: 537 mGy-cm. . LIMITATIONS: Motion artifact mildly limits assessment of the ascending aorta. FINDINGS: LUNGS AND PLEURA: Motion artifact. Bibasilar subsegmental atelectasis with volume loss an d consolidation particularly in the dependent right lower lobe. Small effusions, right greater than left. Fluid looks relatively simple. AORTA AND GREAT VESSELS: Allowing for mild motion artifact along the ascending aorta, no dilatation o r wall thickening appreciated. No dissection. Great vessel origins are patent. HEART: Trace pericardial fluid. No large effusion. No significant coronary calcification or suggest ion of coronary aneurysm. PULMONARY ARTERIES: Limited assessment. Normal caliber without evidence of wall thickening. HILAR AND MEDIASTINAL STRUCTURES: No identified masses or abnormal nodes. HARDWARE: None in the chest. UPPER ABDOMEN: Large amount of stool in the colon. THYROID AND OTHER SOFT TISSUES: No masses. No adenopathy. BONES: No acute or significant finding. 3D MIPS: Confirm above findings. OTHER: No other significant finding. IMPRESSION: 1. No evidence of aortic aneurysm or dissection or abnormal wall thickening. 2. Bilat eral small effusions with bibasilar volume loss/ consolidation particularly in the right lower lobe. COMMENT: Quality ID # [id number]: Final reports with documentation of one or more dose reduction techniques (e.g., Automated exposure control, adjustment of the mA and/or kV according to patient size, use of iterative reconstruction technique) TECHNICAL DOCUMENTATION: JOB ID: [id number] [employer]- All Rights Reserved Reading location - IP/workstation name: [email or web address]
--- NOTE | 2018-05-28 17:20 | PDOC PROGRESS REPORT ---
Subjective Progress Note for:: 05/28/18 Subjective:: CLARIBEL GRANADOS is a 47 year old male who presented to the emergency room with a 6- day history of diarrhea, febrile episodes and severe intermittent headaches. Two days prior to admission he was seen by his primary care provider who obtained blood cultures which were positive for gram-negative rods x2 bottles. His primary care provider requested that he be seen in the ER where his evaluation revealed a CRP of 68. Since the time of his admission the patient had no further diarrhea and when his infective agent was identified as Salmonella he admitted exposure to raw sewage when he crawled through a [place] sewer pipe and got some of the sewage water in his mouth. He was subsequently continued on IV antibiotics and infectious disease consultation was obtained. Patient did have a very broadly sensitive Salmonella and infectious disease recommends extremity has treatment for 14 days with oral antibiotic therapy utilizing trimethoprim sulfa. Therefore his antibiotic regiment was converted to oral therapy on 05/28/2018 and he will be discharged 05/29/2018 if he continues to tolerate therapy without nausea vomiting or recurrence of symptoms. Reason For Visit: BACTEREMIA Physical Exam Vital Signs: Temp Pulse Resp BP Pulse Ox 97.9 F 53 L 16 109/64 95 05/28/18 15:51 05/28/18 15:51 05/28/18 15:51 05/28/18 15:51 05/28/18 15:51 Intake & Output 05/26/18 05/27/18 05/28/18 23:59 23:59 23:59 Intake Total 1476 1594 1565 Output Total 2575 800 Balance -3716 832 3069 Weight 82.2 kg 81.9 kg General appearance: PRESENT: no acute distress, disheveled Head exam: PRESENT: atraumatic, normocephalic Eye exam: ABSENT: conjunctival injection, scleral icterus Ear exam: PRESENT: normal external ear exam. ABSENT: bleeding Mouth exam: PRESENT: neck supple, tongue midline Neck exam: ABSENT: JVD, tracheal deviation Respiratory exam: PRESENT: clear to auscultation kasie, symmetrical, unlabored Cardiovascular exam: PRESENT: RRR. ABSENT: clicks, gallop, rubs Vascular exam: PRESENT: normal capillary refill. ABSENT: pallor GI/Abdominal exam: PRESENT: normal bowel sounds, soft Rectal exam: PRESENT: deferred Extremities exam: ABSENT: joint swelling, pedal edema Musculoskeletal exam: PRESENT: full ROM, normal inspection Neurological exam: PRESENT: alert, oriented to person, oriented to place, oriented to time, oriented to situation, CN II-XII grossly intact. ABSENT: motor sensory deficit Psychiatric exam: PRESENT: appropriate affect, normal mood Skin exam: PRESENT: dry, intact, warm. ABSENT: jaundice, rash, urticaria Results Laboratory Results: 05/26/18 09:02 05/28/18 10:54 05/28/18 10:54 Sodium 142.5 Potassium 4.9 Chloride 103 Carbon Dioxide 31 H Anion Gap 9 BUN 11 Creatinine 1.04 Est GFR ( Amer) > 60 Est GFR (Non-Af Amer) > 60 Glucose 83 Calcium 9.0 Total Bilirubin 0.2 AST 87 H ALT 126 H Alkaline Phosphatase 63 Total Protein 5.4 L Albumin 3.1 L 05/26/18 09:13 Blood Blood Culture - Final Salmonella Species Impressions: Chest X-Ray 05/24/18 03:01 IMPRESSION: No acute cardiopulmonary findings. Head CT 05/25/18 11:41 IMPRESSION: NORMAL BRAIN CT WITHOUT CONTRAST. EVIDENCE OF ACUTE STROKE: NO. Lumbar Puncture 05/26/18 00:00 IMPRESSION: Lumbar puncture under fluoroscopy. No immediate complication. Chest/Abdomen CTA 05/28/18 07:00 IMPRESSION: 1. No evidence of aortic aneurysm or dissection or abnormal wall thickening. 2. Bilateral small effusions with bibasilar volume loss/ consolidation particularly in the right lower lobe. Assessment & Plan - Diagnosis (1) Salmonella bacteremia Is this a current diagnosis for this admission?: Yes Plan: Patient has been found to have salmonella bacteremia which is pansensitive. Patient is being treated with antibiotic therapy will be converted to oral trimethoprim sulfa per the recommendation of the infectious disease data power consultant. Oral antibiotic therapy will be continued at home to finish a 14-day course of treatment. (2) Diarrhea Qualifiers: Diarrhea type: presumed infectious Qualified Code(s): R19.7 - Diarrhea, unspecified Is this a current diagnosis for this admission?: Yes Plan: Patient was presumed to have had infectious diarrhea most likely with Salmonella given his positive blood cultures. Since his admission he has had no further diarrhea and therefore this problem has not been further investigated or treated. (3) Headache Is this a current diagnosis for this admission?: Yes Plan: Patient continues to complain of intermittent severe bilateral throbbing and inward pressure headaches lasting for as little as 1 hour and as long as 4 hours. Headaches respond very poorly to any therapeutic give it except for Toradol and will spontaneously resolve with no therapy. In evaluation of the patient's cerebrospinal fluid was done after a spinal tap and has been unremarkable thus far. Patient will be treated with oral anti-inflammatories on a regular basis for several days post discharge until he is finished his antibiotic therapy. (4) Fever Qualifiers: Fever type: unspecified Qualified Code(s): R50.9 - Fever, unspecified Is this a current diagnosis for this admission?: Yes Plan: Patient reported a fever subjectively prior to his admission. Since the time of his admission no fever has been recorded. No further evaluation or treatment specifically for fever will be undertaken. - Time Time Spent with patient: 15-24 minutes Anticipated discharge: Home Within: within 24 hours
[2018-05-28] MEDS: ZOLPIDEM TARTRATE 5 MG TABLET PO SCH (21:21)
[2018-05-28] MEDS: IBUPROFEN 800 MG TABLET PO SCH (23:26)
[2018-05-29] MEDS: BUTALB/ACETAMINOPHEN/CAFFEINE 1 TAB EACH PO PRN (04:11)
[2018-05-29 05:48] LABS: HEMATOCRIT 36.9 % (37.9-51.0); HEMOGLOBIN 12.7 g/dL (13.5-17.0); MEAN CORPUSCULAR HEMOGLOBIN 30.1 pg (27.0-33.4); MEAN CORPUSCULAR HGB CONC 34.3 g/dL (32.0-36.0); MEAN CORPUSCULAR VOLUME 88 fl (80-97); PLATELET COUNT 406 10^3/uL (150-450); RED BLOOD COUNT 4.21 10^6/uL (4.35-5.55); RED CELL DISTRIBUTION WIDTH 13.7 % (11.5-14.0); WHITE BLOOD COUNT 8.8 10^3/uL (4.0-10.5)
[2018-05-29] MEDS: HEPARIN SOD (PORCINE) 5,000 UNIT/ML 1 ML SYRINGE SUBCUT SCH (05:50)
[2018-05-29 06:11] LABS: ABSOLUTE LYMPHOCYTES# (MANUAL) 2.7 10^3/uL (0.5-4.7); ABSOLUTE NEUTROPHILS# (MANUAL) 4.7 10^3/uL (1.7-8.2); BAND NEUTROPHILS % (MANUAL) 1 % (3-5); BASOPHILS % (MANUAL) 2 % (0-2); EOSINOPHILS % (MANUAL) 3 % (0-6); LYMPHOCYTES % (MANUAL) 31 % (13-45); METAMYELOCYTES % (MANUAL) 1 % (0); MONOCYTES % (MANUAL) 11 % (3-13); SEGMENTED NEUTROPHILS % (MAN) 51 % (42-78); TOTAL CELLS COUNTED 100
[2018-05-29 06:12] LABS: OVALOCYTES 1+; PLATELET COMMENT ADEQUATE; POIKILOCYTOSIS 1+
[2018-05-29] MEDS: BUPRENORPHINE HCL 2 MG SUBLINGUAL TABLET SL SCH (09:05)
[2018-05-29] MEDS: SULFAMETHOXAZOLE/TRIMETHOPRIM 800-160 MG TABLET PO SCH (09:05)
[2018-05-29] MEDS: SENNOSIDES/DOCUSATE 8.6-50 MG 1 EACH TABLET PO SCH (09:05)
[2018-05-29] MEDS: IBUPROFEN 800 MG TABLET PO SCH (09:52)
[2018-05-29 11:28] VITALS: BP 128/80
--- NOTE | 2018-05-31 08:03 | PDOC DISCHARGE SUMMARY ---
General - Admit/Disc Date/PCP Admission Date/Primary Care Provider: 05/24/18 05:19 ANDRES MIX MD Discharge Date: 05/29/18 - Discharge Diagnosis (1) Salmonella bacteremia Is this a current diagnosis for this admission?: Yes Summary: Patient has been found to have salmonella bacteremia which is pansensitive. Patient is being treated with antibiotic therapy will be converted to oral trimethoprim sulfa per the recommendation of the infectious disease aviation consultant. Oral antibiotic therapy will be continued at home to finish a 14-day course of treatment. (2) Diarrhea Is this a current diagnosis for this admission?: Yes Summary: Patient was presumed to have had infectious diarrhea most likely with Salmonella given his positive blood cultures. Since his admission he has had no further diarrhea and therefore this problem has not been further investigated or treated. (3) Headache Is this a current diagnosis for this admission?: Yes Summary: Patient continues to complain of intermittent severe bilateral throbbing and inward pressure headaches lasting for as little as 1 hour and as long as 4 hours. Headaches respond very poorly to any therapeutic give it except for Toradol and will spontaneously resolve with no therapy. In evaluation of the patient's cerebrospinal fluid was done after a spinal tap and has been unremarkable thus far. Patient will be treated with oral anti-inflammatories on a regular basis for several days post discharge until he is finished his antibiotic therapy. Additionally, I have discussed with the patient the possibility that his headache is related to his chronic use of Cialis. (4) Fever Is this a current diagnosis for this admission?: Yes Summary: Patient reported a fever subjectively prior to his admission. Since the time of his admission no fever has been recorded. No further evaluation or treatment specifically for fever will be undertaken. - Additional Information Resuscitation Status: Full Code Discharge Diet: As Tolerated, Regular Discharge Activity: Activity As Tolerated, Balance Activity w/Rest Prescriptions: Ibuprofen [Motrin 800 mg Tablet] 800 mg PO MEALS 10 Days #30 tablet Sulfamethoxazole/Trimethoprim [Septra-Ds 800-160 mg Tablet] 2 tab PO BID 10 Days #40 tablet Home Medications: Buprenorphine HCl/Naloxone HCl [Zubsolv 11.4-2.9 mg Tablet Sl] 0.5 tab SL BID Ondansetron HCl [Zofran 8 mg Tablet] 8 mg PO Q8HP PRN 05/24/18 Tadalafil [Cialis] 5 mg PO DAILY 05/24/18 Ibuprofen [Motrin 800 mg Tablet] 800 mg PO MEALS 10 Days #30 tablet 05/29/18 Sulfamethoxazole/Trimethoprim [Septra-Ds 800-160 mg Tablet] 2 tab PO BID 10 Days #40 tablet 05/29/18 History of Present Illness Patient complains of: Diarrhea History of Present Illness: CLARIBEL GRANADOS is a 47 year old male who presented to the emergency room with a 6- day history of diarrhea, febrile episodes and severe intermittent headaches. Two days prior to admission he was seen by his primary care provider who obtained blood cultures which were positive for gram-negative rods x2 bottles. His primary care provider requested that he be seen in the ER where his evaluation revealed a CRP of 68. Hospital Course Hospital Course: Since the time of his admission the patient had no further diarrhea and when his infective agent was identified as Salmonella he admitted exposure to raw sewage when he crawled through a sewer line repairer pipe and got some of the sewage water in his mouth. He was subsequently continued on IV antibiotics and infectious disease consultation was obtained. Patient did have a very broadly sensitive Salmonella and infectious disease recommends extremity has treatment for 14 days with oral antibiotic therapy utilizing trimethoprim sulfa. Therefore his antibiotic regiment was converted to oral therapy on 05/28/2018 and he will be discharged 05/29/2018 if he continues to tolerate therapy without nausea vomiting or recurrence of symptoms. Physical Exam Vital Signs: Temp Pulse Resp BP Pulse Ox 97.8 F 60 17 128/80 H 95 05/29/18 11:17 05/29/18 11:17 05/29/18 11:17 05/29/18 11:17 05/29/18 11:17 Intake & Output 05/29/18 05/30/18 05/31/18 23:59 23:59 23:59 Intake Total 1370 Balance 1370 Weight 81.9 kg General appearance: PRESENT: no acute distress, cooperative Head exam: PRESENT: atraumatic, normocephalic Eye exam: PRESENT: conjunctiva pink, EOMI Ear exam: PRESENT: normal external ear exam Mouth exam: PRESENT: neck supple Neck exam: ABSENT: tracheal deviation Respiratory exam: PRESENT: clear to auscultation kasie, symmetrical, unlabored Cardiovascular exam: PRESENT: RRR. ABSENT: clicks, gallop, rubs Vascular exam: PRESENT: normal capillary refill. ABSENT: pallor GI/Abdominal exam: PRESENT: normal bowel sounds, soft Rectal exam: PRESENT: deferred Extremities exam: ABSENT: joint swelling, pedal edema Musculoskeletal exam: PRESENT: ambulatory, full ROM, normal inspection Neurological exam: PRESENT: alert, oriented to person, oriented to place, oriented to time, oriented to situation Psychiatric exam: PRESENT: appropriate affect, normal mood Skin exam: PRESENT: dry, intact, warm Results Laboratory Results: 05/29/18 04:44 05/28/18 10:54 05/27/18 09:07 Stool - Stool - Final 05/27/18 09:07 Stool - Stool Stool Culture - Final Salmonella Species Impressions: Chest X-Ray 05/24/18 03:01 IMPRESSION: No acute cardiopulmonary findings. Head CT 05/25/18 11:41 IMPRESSION: NORMAL BRAIN CT WITHOUT CONTRAST. EVIDENCE OF ACUTE STROKE: NO. Lumbar Puncture 05/26/18 00:00 IMPRESSION: Lumbar puncture under fluoroscopy. No immediate complication. Chest/Abdomen CTA 05/28/18 07:00 IMPRESSION: 1. No evidence of aortic aneurysm or dissection or abnormal wall thickening. 2. Bilateral small effusions with bibasilar volume loss/ consolidation particularly in the right lower lobe. Qualifiers - * PATIENT BEING DISCHARGED WITH ANY OF THE FOLLOWING DIAGNOSIS: No Plan Discharge Plan: Discharged home in improved and stable condition Time Spent: Greater than 30 Minutes
== END 2018-05-29 12:28 | disposition home or self-care (01) | DRG 868 ==
LOC: ER 02:40 → EH 05:19 → OBSVTOIN 05:19 → 4S 07:09
PROVIDERS: ADMIT Internal Medicine; ATTEND Internal Medicine
PROC: 009U3ZX Drainage of Spinal Canal, Percutaneous Approach, Diagnostic (ICD-10-PCS; principal; 2018-05-26)
DX: A02.9 Salmonella infection, unspecified (principal); R78.81 Bacteremia; E86.0 Dehydration; R51 Headache; Z79.899 Other long term (current) drug therapy; Z86.010 Personal history of colon polyps; Z87.891 Personal history of nicotine dependence; Z88.8 Allergy status to other drugs, medicaments and biological substances; Z90.5 Acquired absence of kidney
CPT/HCPCS: 36415; 62270; 70450; 71045; 71275; 80048; 80053; 80307; 81001; 82272; 82803; 82945; 83605; 83735; 84157; 85025; 85610; 85652; 85730; 86140; 87040; 87045; 87070; 87077; 87186; 87205; 89050; 96361; 96374; 99285; J0571; J0696; J1644; J1885; J2543; J3490; J7030